=== PATIENT | male | born 2000 | race Caucasian/White ===

== ENCOUNTER 2020-12-02 20:04 | Emergency (ER) | payer OTHER ==
[~2020-12-02] VITALS: Ht 182.9 cm; Wt 84.1 kg
[2020-12-02 20:09] VITALS: TEMP 97.2
[2020-12-02] MEDS ORDERED: FOCALIN XR15 MG PO (20:37)
[2020-12-02] MEDS ORDERED: AMOXICILLIN 8751 TAB PO (20:47)
[2020-12-02 21:52] VITALS: BP 130/73; PULSE 69
== END 2020-12-02 21:53 | disposition home or self-care (01) ==
LOC: COL.ER 20:04
DX: S61.247A Puncture wound with foreign body of left little finger without damage to nail, initial encounter (principal); W45.8XXA Other foreign body or object entering through skin, initial encounter